=== PATIENT | female | born 1990 | race Hispanic/Latino ===

== ENCOUNTER 2016-12-17 20:54 | Inpatient (IN) | payer BC ==
--- NOTE | 2016-12-17 21:12 | ED PDOC ---
HPI: General Adult Time Seen by Provider: 12/17/16 21:11 Chief Complaint (Nursing): Back Pain Chief Complaint (Provider): flank pain History Per: Patient Additional Complaint(s): 26-year-old female with history of kidney stones presents to emergency department with acute onset of left flank pain that started 4 hours ago. Patient thought the pain was related to menstrual cramps so she took Midol at home which did not help the symptoms. She presents today with pain to left flank region rated as 9 out of 10, associated with nausea but no vomiting, no fever or chills. Past Medical History Reviewed: Historical Data, Nursing Documentation, Vital Signs Vital Signs: Last Vital Signs Temp 98.3 F 12/18/16 01:37 Pulse 72 12/18/16 01:37 Resp 16 12/18/16 01:37 BP 101/59 L 12/18/16 01:37 Pulse Ox 99 12/18/16 01:41 - Medical History PMH: Kidney Stones - Surgical History Surgical History: No Surg Hx - Family History Family History: States: No Known Family Hx - Living Arrangements Living Arrangements: With Friends/Others - Social History Current smoker - smoking cessation education provided: No Alcohol: None Drugs: Denies - Allergies Allergies/Adverse Reactions: Allergies Allergy/AdvReac Type Severity Reaction Status Date / Time Penicillins Allergy RASH Verified 12/17/16 21:03 Review of Systems ROS Statement: Except As Marked, All Systems Reviewed And Found Negative Constitutional: Negative for: Fever, Chills Cardiovascular: Negative for: Chest Pain Respiratory: Negative for: Cough Gastrointestinal: Positive for: Nausea, Abdominal Pain (left side radiating from left flank region). Negative for: Vomiting Genitourinary Female: Positive for: Pelvic Pain (currently menstruating). Negative for: Dysuria, Frequency, Incontinence, Hematuria, Vaginal Discharge, Vaginal Bleeding Physical Exam - Reviewed Nursing Documentation Reviewed: Yes Vital Signs Reviewed: Yes - Physical Exam Appears: Positive for: Well, Non-toxic, No Acute Distress Skin: Negative for: Rash Eye Exam: Positive for: Normal appearance Cardiovascular/Chest: Positive for: Regular Rate, Rhythm Respiratory: Positive for: Normal Breath Sounds. Negative for: Wheezing, Respiratory Distress Gastrointestinal/Abdominal: Positive for: Tenderness (LLQ). Negative for: Distended, Guarding, Rebound Back: Positive for: L CVA Tenderness (moderate). Negative for: R CVA Tenderness , Vertebral Tenderness Neurologic/Psych: Positive for: Alert, Oriented - Laboratory Results Result Diagrams: 12/17/16 22:03 12/17/16 22:03 Urine POC: Negative Urine dip results: Positive for: Blood (moderate). Negative for: Leukocyte Esterase, Nitrate, Ketones, Glucose, Bilirubin, Protein - ECG Interpretation Of ECG: Normal sinus rhythm 61 bpm but no acute findings, reviewed by PA and ED attending. O2 Sat by Pulse Oximetry: 99 Pulse Ox Interpretation: Normal - Other Rad CT abd and pelvis without contrast X-Ray: Read By Radiologist X-Ray Interpretation: see below Medical Decision Making Medical Decision Makin26 year old with acute left flank pain Plan: CBC CMP Urine and dip IVF IV zofran IV toradol PO tylenol CT abd and pelvis without contrast Patient was admitted to ED observation. 10:15 pm: patient returned from CT and states she feels more nauseous and vomited x 1, additional 4 mg IV zofran given. CT: ABDOMEN: Liver: Unremarkable. Gallbladder and bile ducts: No calcified stones. No ductal dilation. Pancreas: Unremarkable. No ductal dilation. Spleen: No splenomegaly. Adrenals: No mass. Kidneys and ureters: Several small renal calculi. Mgxy-nz-[id number] pelvocaliectasis of LEFT kidney. 0.4 x 0.4 x 0.4 cm calculus within LEFT proximal ureter. Stomach and bowel: Segmental areas of underdistention of colon. No definite mural thickening. No obstruction. Appendix: Normal caliber. No inflammation. PELVIS: Bladder: Unremarkable. No stones. Reproductive: Unremarkable as visualized. ABDOMEN and PELVIS: Intraperitoneal space: Trace free fluid within pelvis. No free air. Bones/joints: No acute fracture. Soft tissues: Unremarkable. Vasculature: Unremarkable. No aneurysm. Lymph nodes: No pathologically enlarged lymph nodes. IMPRESSION: 1. LEFT proximal ureteral calculus with qjrl-[id number]-izvsnmgm hydronephrosis. 2. Incidental/non-acute findings are described above. 10:45 pm: patient is still in a lot of pain despite toradol and tylenol doses. Case was d/w Dr. Kee. Patient was given weight based dose of IV lidocaine. EKG obtained prior to lidocaine medication administered, EKG demonstrates no acute finding. 11:57 - patient states that back pain has resolved but she still has pain in lower abdomen. Additional fluid bolus given along with 0.4 mg PO flomax. 12:30 - patient is still in severe pain, she vomited again. Patient was given 10 mg IV reglan and 4 mg IV morphine 1:20 am: patient is still is severe pain, additional 4 mg IV morphine given. Case was d/w medicine investor relations director, Dr. Mcrae who will admit patient. Patient was admitted to [facility]. She is aware of and agrees with admission. I also spoke with Dr. Darling, urology investor relations director, who will see patient in AM. Disposition - Clinical Impression Clinical Impression: Ureteral stone with hydronephrosis - Patient ED Disposition Is Patient to be Admitted: Yes - Disposition Disposition Time: 23:43 Condition: FAIR - Pt Status Changed To: Hospital Disposition Of: Observation - POA Present On Arrival: None Results - Lab Results Lab Results: 12/17/16 12/17/16 22:03 22:03 WBC 9.4 RBC 4.47 Hgb 14.0 Hct 41.9 MCV 93.7 MCH 31.4 H MCHC 33.5 RDW 13.7 Plt Count 211 MPV 9.3 Neut % (Auto) 63.1 Lymph % (Auto) 29.8 [place] % (Auto) 6.4 Eos % (Auto) 0.4 Baso % (Auto) 0.3 Neut # 5.9 Lymph # 2.8 [place] # 0.6 Eos # 0.0 Baso # 0.0 Sodium 140 Potassium 4.1 Chloride 106 Carbon Dioxide 25 Anion Gap 13 BUN 20 H Creatinine 1.0 Est GFR ( Amer) > 60 Est GFR (Non-Af Amer) > 60 Random Glucose 92 Calcium 9.7 Total Bilirubin 1.2 AST 25 ALT 35 Alkaline Phosphatase 60 Total Protein 7.3 Albumin 4.7 Globulin 2.6 Albumin/Globulin Ratio 1.8
[2016-12-17] MEDS ORDERED: Sodium Chloride 0.9% 1,000 ML IV STA ×2 (21:31→22:17)
[2016-12-17 22:09] LABS: BASO % 0.3 % (0.0-2.0); EOS % 0.4 % (0.0-4.0); LYMPH # 2.8 K/uL (1.0-4.3); LYMPH % 29.8 % (20.0-40.0); MEAN CELL VOLUME 93.7 fl (81.0-99.0); MEAN CORPUSCULAR HEMOGLOBIN 31.4 pg (27.0-31.0); MEAN CORPUSCULAR HGB CONC 33.5 g/dL (33.0-37.0); MEAN PLATELET VOLUME 9.3 fl (7.2-11.7); MONO # 0.6 K/uL (0.0-0.8); MONO % 6.4 % (0.0-10.0); NEUT # 5.9 K/uL (1.8-7.0); NEUT % 63.1 % (50.0-75.0); NRBC % 0.1 % (0.0-0.0); RBC 4.47 Mil/uL (3.80-5.20); RED CELL DISTRIBUTION WIDTH 13.7 % (11.5-14.5); WHITE BLOOD COUNT 9.4 K/uL (4.8-10.8)
[2016-12-17 22:17] LABS: ALB/GLOB RATIO 1.8 (1.0-2.1); ALBUMIN 4.7 g/dL (3.5-5.0); ALT/SGPT 35 U/L (9-52); AST/SGOT 25 U/L (14-36); BLOOD UREA NITROGEN 20 mg/dl (7-17); CALCIUM 9.7 mg/dL (8.4-10.2); GFR AFRICAN-AMERICAN > 60; GFR NON-AFRICAN AMERICAN > 60
[2016-12-17] MEDS ORDERED: LIDOCAINE IV STA (22:44)
[2016-12-17] MEDS ORDERED: SODIUM CHLORIDE 0.9% IV STA (22:44)
[2016-12-18] MEDS ORDERED: Sodium Chloride 0.9% 1,000 ML IV STA (00:04)
[2016-12-18] MEDS ORDERED: Morphine 4 MG/ML VIAL IVP PRN (06:16)
[2016-12-18] MEDS ORDERED: Dextrose 5%/0.45% NS 1,000 ML IV SCH (06:30)
[2016-12-18] MEDS ORDERED: levoFLOXacin 750 mg in D5W 750 MG/150 ML BAG IVPB SCH (09:00)
[2016-12-18] MEDS ORDERED: levoFLOXacin 750 mg in D5W 150 ML BAG IVPB SCH (09:00)
[2016-12-18 09:44] LABS: BASO % 0.2 % (0.0-2.0); EOS % 0.2 % (0.0-4.0); HEMOGLOBIN 11.2 g/dL (12.0-16.0); LYMPH # 2.2 K/uL (1.0-4.3); LYMPH % 23.2 % (20.0-40.0); MEAN CELL VOLUME 94.3 fl (81.0-99.0); MEAN CORPUSCULAR HEMOGLOBIN 31.4 pg (27.0-31.0); MEAN CORPUSCULAR HGB CONC 33.3 g/dL (33.0-37.0); MEAN PLATELET VOLUME 9.1 fl (7.2-11.7); MONO # 0.8 K/uL (0.0-0.8); MONO % 8.3 % (0.0-10.0); NEUT # 6.4 K/uL (1.8-7.0); NEUT % 68.1 % (50.0-75.0); RBC 3.57 Mil/uL (3.80-5.20); RED CELL DISTRIBUTION WIDTH 14.1 % (11.5-14.5); WHITE BLOOD COUNT 9.4 K/uL (4.8-10.8)
--- NOTE | 2016-12-18 09:46 | CT ---
PROCEDURE: CT Abdomen and Pelvis without intravenous contrast HISTORY: acute onset left flank pain COMPARISON: None. TECHNIQUE: Axial and reformatted coronal and sagittal CT images of the abdomen and pelvis were obtained without IV or oral contrast administration.. Contrast Dose: 0 Radiation dose: Total exam DLP = 310.59 mGy-cm. This CT exam was performed using one or more of the following dose reduction techniques: Automated exposure control, adjustment of the mA and/or kV according to patient size, and/or use of iterative reconstruction technique. FINDINGS: LOWER THORAX: Unremarkable. LIVER: Unremarkable. No gross lesion or ductal dilatation. GALLBLADDER AND BILE DUCTS: Unremarkable. PANCREAS: Unremarkable. No gross lesion or ductal dilatation. SPLEEN: Unremarkable. ADRENALS: Unremarkable. No mass. KIDNEYS AND URETERS: There is mild left hydronephrosis and proximal hydroureter up to 4.5 x 5 millimeter calculus at the proximal left ureter. There are bilateral nonobstructing renal calculi. The largest nonobstructing calculus seen at the mid to upper pole of the right kidney measures 4.3 millimeter. No evidence of right hydronephrosis or hydroureter. VASCULATURE: Unremarkable. No aortic aneurysm. BOWEL: Unremarkable. No obstruction. No gross mural thickening. APPENDIX: Unremarkable. Normal appendix. PERITONEUM: Unremarkable. No free fluid. No free air. LYMPH NODES: Unremarkable. No enlarged lymph nodes. BLADDER: Unremarkable. REPRODUCTIVE: Unremarkable. BONES: No acute fracture. OTHER FINDINGS: None. IMPRESSION: Ezhr-st-dyochvbd left hydronephrosis up to 4.5 x 5 millimeter calculus at the proximal left ureter. Bilateral nonobstructing renal calculi. Otherwise no evidence of acute pathology in the abdomen and pelvis in this noncontrast study. Preliminary report was submitted by [facility].
[2016-12-18 09:54] LABS: ALB/GLOB RATIO 1.5 (1.0-2.1); ALBUMIN 3.2 g/dL (3.5-5.0); ALT/SGPT 31 U/L (9-52); AST/SGOT 22 U/L (14-36); BLOOD UREA NITROGEN 15 mg/dl (7-17); CALCIUM 8.2 mg/dL (8.4-10.2); GFR AFRICAN-AMERICAN > 60; GFR NON-AFRICAN AMERICAN > 60; HDL CHOLESTEROL 59 MG/DL (30-70)
[2016-12-18 10:06] LABS: LDL CHOLESTEROL 31 mg/dL (0-129)
[2016-12-18 10:09] LABS: T4 7.92 ug/dl (5.5-11.0)
--- NOTE | 2016-12-18 10:12 | RAD ---
HISTORY: Possible OR COMPARISON: None available. TECHNIQUE: Chest, one view. FINDINGS: LUNGS: No focal consolidation. Please note that chest x-ray has limited sensitivity for the detection of pulmonary masses. PLEURA: No significant pleural effusion identified. No definite pneumothorax . CARDIOVASCULAR: The cardiomediastinal silhouette appears within normal limits of size. OSSEOUS STRUCTURES: No acute osseous abnormality identified. VISUALIZED UPPER ABDOMEN: Unremarkable. OTHER FINDINGS: None. IMPRESSION: No focal consolidation, significant pleural effusion, or definite pneumothorax identified.
[2016-12-18] MEDS ORDERED: Iohexol 300 100 ML IJ ONE (10:57)
[2016-12-18] MEDS ORDERED: Propofol 10 mg/ml Inj (20 ML) ONE ×2 (11:08→15:06)
[2016-12-18] MEDS ORDERED: Midazolam 2 MG/2 ML VIAL ONE (11:09)
[2016-12-18 11:44] LABS: PROTHROMBIN TIME 11.9 Seconds (9.8-13.1)
[2016-12-18 11:45] LABS: INR 1.1 (0.9-1.2); PARTIAL THROMBOPLASTIN TIME 28.9 Seconds (25.6-37.1)
[2016-12-18] MEDS ORDERED: Iohexol 240 200 ML IJ ONE (14:22)
[2016-12-18] MEDS ORDERED: Ciprofloxacin 400mg/200ml D5W 400 MG/200 ML BAG IVPB ONE (14:38)
[2016-12-18] MEDS ORDERED: Sodium Chloride 0.9% 1,000 ML IV ONE (14:40)
[2016-12-18] MEDS ORDERED: Ciprofloxacin 400mg/200ml D5W IVPB ONE (14:46)
--- NOTE | 2016-12-18 15:30 | CP.PCM.HP ---
History of Present Illness - History of Present Illness History of Present Illness: CC: L Flank pain. 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 Pain was sharp, stabbing, constant, moderate intensity 7:10 associated to nausea and one episode of vomiting. Worsening symptoms: Hx. of kidneys stones, found urine test with moderate blood. Aggravated factor: Slow ambulation 2nd increased pain with moving. EKG showed: Sinus rhythm with marked sinus arrhythmia. CXR: No focal consolidation, pleural effusion or pneumothorax. CT Abd/Pelv. shows: Let hydronephrosis, calculus at the proximal left ureter, b/ l nonobstructing renal calculus. Present on Admission - Present on Admission Any Indicators Present on Admission: No Review of Systems - Constitutional Constitutional: Other (negative) - EENT Eyes: Other (negative) Ears: Other (negative) Nose/Mouth/Throat: Other (negative) - Cardiovascular Cardiovascular: Other (negative) - Respiratory Respiratory: Other (negative) - Gastrointestinal Gastrointestinal: Nausea, Vomiting, Other (Flank pain) - Genitourinary Genitourinary: Hematuria - Musculoskeletal Musculoskeletal: Back Pain - Integumentary Integumentary: Other (negative) - Neurological Neurological: Other (negative) - Psychiatric Psychiatric: Other (negative) - Endocrine Endocrine: Other (negative) - Hematologic/Lymphatic Hematologic: Other (negative) Past Patient History - Past Medical History & Family History Past Medical History?: Yes Pertinent Family History: Unknown - Past Social History Smoking Status: Current Some Days Smoker Alcohol: None Drugs: Denies Home Situation {Lives}: With Family - CARDIAC Hx Cardiac Disorders: No - PULMONARY Hx Respiratory Disorders: No - NEUROLOGICAL Hx Neurological Disorder: No - HEENT Hx HEENT Problems: No - RENAL Hx Chronic Kidney Disease: Yes Hx Kidney Stones: Yes - ENDOCRINE/METABOLIC Hx Endocrine Disorders: No - HEMATOLOGICAL/ONCOLOGICAL Hx Blood Disorders: No - INTEGUMENTARY Hx Dermatological Problems: No - MUSCULOSKELETAL/RHEUMATOLOGICAL Hx Musculoskeletal Disorders: No Hx Falls: No - GASTROINTESTINAL Hx Gastrointestinal Disorders: No - GENITOURINARY/GYNECOLOGICAL Hx Genitourinary Disorders: No - PSYCHIATRIC Hx Psychophysiologic Disorder: No Hx Substance Use: No - SURGICAL HISTORY Hx Surgeries: No - ANESTHESIA Hx Anesthesia: No Hx Anesthesia Reactions: No Meds Allergies/Adverse Reactions: Allergies Allergy/AdvReac Type Severity Reaction Status Date / Time Penicillins Allergy RASH Verified 12/17/16 21:03 Physical Exam - Constitutional Appears: No Acute Distress - Head Exam Head Exam: NORMAL INSPECTION - Eye Exam Eye Exam: PERRL - ENT Exam ENT Exam: Normal Oropharynx - Neck Exam Neck exam: Positive for: Normal Inspection - Respiratory Exam Respiratory Exam: NORMAL BREATHING PATTERN - Cardiovascular Exam Cardiovascular Exam: REGULAR RHYTHM - GI/Abdominal Exam GI & Abdominal Exam: Normal Bowel Sounds, Soft, Tenderness (mild LLQ) - Extremities Exam Extremities exam: Positive for: normal inspection - Neurological Exam Neurological exam: Alert, Oriented x3 - Psychiatric Exam Psychiatric exam: Normal Mood - Skin Skin Exam: Warm Results - Vital Signs Recent Vital Signs: Last Vital Signs Temp 98.4 F 12/18/16 11:49 Pulse 93 H 12/18/16 11:49 Resp 17 12/18/16 11:49 BP 120/75 12/18/16 11:49 Pulse Ox 95 12/18/16 11:49 reviewed J.P. - Labs Result Diagrams: 12/18/16 09:00 12/18/16 09:00 Labs: reviewed J.P. - EKG Data EKG comments: reviewed J.P. - Imaging and Cardiology Chest x-ray Status: Report reviewed by me (Marco A) CT scan - abdomen Status: Report reviewed by me (Marco A) CT scan - pelvis Status: Report reviewed by me (Marco A) Assessment & Plan (1) Ureteral stone with hydronephrosis Status: Acute Priority: High (2) S/P cystoscopy Status: Acute Priority: High Comment: For placement of L ureteral stent. - Assessment and Plan (Free Text) Plan: Pt had a Cystoscopy for placement of left ureteral stent, after procedure, Pt was tolerating liquid well, no c/o of pain, voided freely. Pt was cleared by Urology. Pt improved and stable to be discharged, see instruction medication sheet, f/u with PMD in one week and Urology in 2 weeks. - Date & Time Date: 12/18/16
[2016-12-18] MEDS ORDERED: Lactated Ringer's 1,000 ML IV SCH (15:35)
[2016-12-18] MEDS ORDERED: HYDROmorphone 0.5 mg/0.5 ml ISec IVP PRN (15:35)
--- NOTE | 2016-12-18 16:11 | CARD ---
APPROVED REPORT EKG Measurement Heart [id number] <Conclusion> Sinus rhythm with marked sinus arrhythmia Otherwise normal ECG
[2016-12-18 17:05] VITALS: BP 104/75; PULSE 61; RESP 16; TEMP 97.9; O2SAT 98
[2016-12-18 17:10] LABS: SQUAMOUS EPITHIAL < 1 /hpf (0-5); URINE BILIRUBIN NEGATIVE (NEGATIVE); URINE BLOOD NEGATIVE (NEGATIVE); URINE CLARITY SLIGHTY-CLOUDY (Clear); URINE COLOR YELLOW (YELLOW); URINE GLUCOSE (UA) NEG (Normal); URINE LEUKOCYTE ESTERASE NEG Leu/uL (Negative); URINE NITRATE NEGATIVE (NEGATIVE); URINE PROTEIN NEGATIVE (NEGATIVE); URINE UROBILINOGEN 0.2-1.0 mg/dL (0.2-1.0)
--- NOTE | 2016-12-18 18:34 | RAD ---
PROCEDURE: Intraoperative fluoroscopy HISTORY: CYSTOSCOPY COMPARISON: Not available TECHNIQUE: Intraoperative fluoroscopy was provided for placement of left ureteral stent. Total time of fluoroscopy was 20 seconds. FINDINGS: Six fluoroscopic spot films are submitted. Films are on file for review. IMPRESSION: Fluoroscopy provided.
--- NOTE | 2016-12-22 17:02 | OP ---
PROCEDURE DATE: 12/18/2016 Surgeon: Jonny Obrien MD Anesthetic: General Anesthesiologist: Dr Manish I Procedure: Cystoscopy Stent Placement The patient was admitted to the emergency room with severe left flank pain consuming ureteral obstructing 4 mm catheter to proximal ureter. DESCRIPTION OF PROCEDURE: The patient was brought to the OR, prepped and draped in the usual manner. After general anesthesia given, #21 cystourethroscope was inserted into bladder to the kidney placement of the stent. The patient tolerated the procedure well and left the OR in good condition. Jonny Darling MD MTDD
== END 2016-12-18 18:08 | disposition home or self-care (01) | DRG 694 ==
LOC: H.ER 20:54 → H.ERHOLD 12-18 01:25 → H.MEDSURG1 12-18 02:11 → OBSVTOIN 12-18 13:58
PROVIDERS: ADMIT Internal Medicine Pulmonary Disease; ATTEND Internal Medicine Pulmonary Disease
PROC: 0TJB8ZZ Inspection of Bladder, Via Natural or Artificial Opening Endoscopic (ICD-10-PCS; principal; 2016-12-18 11:30)
DX: N13.2 Hydronephrosis with renal and ureteral calculous obstruction (principal); F17.200 Nicotine dependence, unspecified, uncomplicated; N18.9 Chronic kidney disease, unspecified; Z87.442 Personal history of urinary calculi; Z88.0 Allergy status to penicillin